=== PATIENT | female | born 1955 | race Caucasian/White ===

== ENCOUNTER 2018-08-03 14:12 | Outpatient (CLI) | payer OTHER | END 2018-08-03 14:23 | disposition home or self-care (01) | LOC: SONOGRAMA 14:12 → MAMO-SONO 14:15 → SONOGRAMA 14:23 | DX: R22.1 Localized swelling, mass and lump, neck (principal) ==

== ENCOUNTER 2019-01-20 07:21 | Outpatient (CLI) | payer OTHER | END 2019-01-20 07:33 | disposition home or self-care (01) | LOC: LAB 07:21 | DX: E03.1 Congenital hypothyroidism without goiter (principal); E78.5 Hyperlipidemia, unspecified; E11.9 Type 2 diabetes mellitus without complications; N39.0 Urinary tract infection, site not specified; I10 Essential (primary) hypertension; M25.50 Pain in unspecified joint; Z12.11 Encounter for screening for malignant neoplasm of colon ==

== ENCOUNTER 2019-01-20 12:54 | Outpatient (CLI) | payer OTHER | END 2019-01-20 13:05 | disposition home or self-care (01) | LOC: MAMO-SONO 12:54 | DX: Z13.820 Encounter for screening for osteoporosis (principal); Z12.39 Encounter for other screening for malignant neoplasm of breast; N60.31 Fibrosclerosis of right breast; N60.32 Fibrosclerosis of left breast ==

== ENCOUNTER → 2019-01-20 | Outpatient (CLI) | payer OTHER | END | disposition home or self-care (01) | LOC: NUCLEAR 11:29 | DX: M81.0 Age-related osteoporosis without current pathological fracture (principal); Z13.820 Encounter for screening for osteoporosis ==

== ENCOUNTER 2019-01-25 10:53 | Outpatient (CLI) | payer OTHER | END 2019-01-25 15:00 | disposition home or self-care (01) | LOC: LAB 10:53 | DX: E03.1 Congenital hypothyroidism without goiter (principal); E78.49 Other hyperlipidemia; E11.9 Type 2 diabetes mellitus without complications; N39.0 Urinary tract infection, site not specified; I10 Essential (primary) hypertension; M25.50 Pain in unspecified joint; Z12.11 Encounter for screening for malignant neoplasm of colon ==

== ENCOUNTER 2020-05-03 07:52 | Outpatient (CLI) | payer OTHER | END 2020-05-03 12:22 | disposition home or self-care (01) | LOC: PPH VACUNA 07:52 | DX: Z23 Encounter for immunization (principal) ==

== ENCOUNTER 2020-06-26 10:43 | Emergency (ER) | payer OTHER ==
[~2020-06-26] VITALS: Ht 152.4 cm; Wt 77.1 kg
[2020-06-26] MEDS ORDERED: WELLBUTRIN XL300 MG (10:55)
[2020-06-26] MEDS ORDERED: ZESTRIL5 MG (10:55)
[2020-06-26] MEDS ORDERED: SYNTHROID112 MCG (10:55)
[2020-06-26] MEDS ORDERED: HYDROCHLOROTH12.5 MG (10:56)
[2020-06-26] MEDS ORDERED: AMOX1TAB5 PO (13:04)
== END 2020-06-26 13:08 | disposition home or self-care (01) ==
LOC: ER 10:43
DX: L03.116 Cellulitis of left lower limb (principal); T24.10 Burn of first degree of unspecified site of lower limb, except ankle and foot; T79.8XXS Other early complications of trauma, sequela; X58.XXXS Exposure to other specified factors, sequela

== ENCOUNTER 2021-01-29 08:00 | Outpatient (CLI) | payer OTHER ==
[~2021-01-29 08:00] MED LIST: AMOX1TAB5 PO; HYDROCHLOROTH12.5 MG; SYNTHROID112 MCG; WELLBUTRIN XL300 MG; ZESTRIL5 MG
== END 2021-01-29 08:30 | disposition home or self-care (01) ==
LOC: PPH VACUNA 08:00
PROVIDERS: ATTEND Emergency Medicine Pediatric Emergency Medicine
DX: Z23 Encounter for immunization (principal)

== ENCOUNTER 2021-08-03 08:00 | Outpatient (CLI) | payer OTHER | END 2021-08-03 08:30 | disposition home or self-care (01) | LOC: PPH VACUNA 08:00 | PROVIDERS: ATTEND Emergency Medicine Pediatric Emergency Medicine | DX: Z23 Encounter for immunization (principal) ==

== ENCOUNTER 2021-12-25 11:30 | Outpatient (CLI) | payer OTHER | END 2021-12-25 13:43 | disposition home or self-care (01) | LOC: LAB 11:30 | PROVIDERS: ATTEND Internal Medicine Gastroenterology | DX: K29.00 Acute gastritis without bleeding (principal) ==

== ENCOUNTER 2022-01-15 12:40 | Outpatient (CLI) | payer OTHER | END 2022-01-15 12:50 | disposition home or self-care (01) | LOC: PPH VACUNA 12:40 | PROVIDERS: ATTEND Emergency Medicine Pediatric Emergency Medicine | DX: Z23 Encounter for immunization (principal) ==

== ENCOUNTER 2023-05-19 09:56 | Emergency (ER) | payer OTHER ==
[~2023-05-19] VITALS: Ht 152.4 cm; Wt 75.7 kg
[2023-05-19] MEDS ORDERED: NORVASC5 MG (10:00)
[2023-05-19 11:45] LABS: PH,URINE 5.5 (5.0-8.0); URINE APPEARANCE Clear; URINE BILIRRUBIN Negative (NEGATIVE); URINE BLOOD Trace; URINE COLOR Yellow; URINE GLUCOSE Negative (NEGATIVE); URINE LEUKOCYTE Negative; URINE NITRATE Negative; URINE PROTEIN Negative (NEGATIVE); URINE UROBILINOGEN 0.2 E.U./dl
[2023-05-19 11:46] LABS: HEMATOCRIT 38.7 % (36.0-45.00); HEMOGLOBIN 13.1 g/dL (12.0-15.00); MEAN CELL VOLUME 91.3 fL (80.00-100.00); MEAN CORPUSCULAR HEMOGLOBIN 30.9 pg (27.00-32.0); MEAN CORPUSCULAR HGB CONC 33.8 g/dl (32.0-36.0); PLATELET COUNT 298 K/uL (150-450); RED BLOOD COUNT 4.23 M/uL (4.00-6.00); URINE BACTERIA 59.2 uL (0.0-1933); URINE EPITHELIAL CELLS 2.4 uL (0.0-38.8)
[2023-05-19 12:28] LABS: CALCIUM 9.5 mg/dL (8.5-10.1); CREATININE SERUM 0.89 mg/dL (0.55-1.02); GFR 63.65; POTASSIUM 4.02 mEq/L (3.5-5.1)
[2023-05-19 12:48] LABS: URINE RBC 1.5 uL (0.0-20.8); URINE WBC 0.4 uL (0.0-23.2)
== END 2023-05-19 16:11 | disposition home or self-care (01) ==
LOC: ER 09:57
PROVIDERS: Emergency Medicine
DX: R10.9 Unspecified abdominal pain (principal); Z87.19 Personal history of other diseases of the digestive system; I10 Essential (primary) hypertension; E03.9 Hypothyroidism, unspecified
CPT/HCPCS: 36415; 74177; 96365; 96366; 99284; J7030; Q9965

== ENCOUNTER 2023-06-12 11:40 | Outpatient (CLI) | payer OTHER ==
[~2023-06-12 11:40] MED LIST changes: +NORVASC5 MG
== END 2023-06-12 11:43 | disposition home or self-care (01) ==
LOC: RAD 11:40
PROVIDERS: ATTEND Specialist
DX: J45.991 Cough variant asthma (principal)

== ENCOUNTER 2024-10-11 12:11 | Outpatient (CLI) | payer OTHER ==
[2024-10-11 12:46] LABS: BASO % 0.4 % (0.1-1.2); EOS % 1.5 % (0.7-7.0); HEMATOCRIT 40.5 % (34.1-44.9); HEMOGLOBIN 13.4 g/dL (11.2-15.7); LYMPH # 1.97 (1.18-3.74); LYMPH % 28.8 % (19.3-53.1); MEAN CORPUSCULAR HEMOGLOBIN 29.6 pg (25.6-32.2); MONO % 5.8 % (4.7-12.5); NEUT # 4.33 (1.56-6.13); NEUT % 63.2 % (34.0-71.1); PLATELET COUNT 316 K/uL (163-369); RED BLOOD COUNT 4.53 M/uL (3.93-5.22); RED CELL DISTRIBUTION WIDTH 12.7 % (11.6-14.4)
[2024-10-11 13:01] LABS: ERYTHROCYTE SEDIMENTATION RATE 3 mm/hr (0-30)
[2024-10-11 13:18] LABS: COVID-19 AG NEGATIVE (NEGATIVE)
[2024-10-11 13:45] LABS: ALBUMIN 4.1 gm/dL (3.4-5.0); ALT/SGPT 42 U/L (12-78); ANION GAP 8 (10.0-20.0); AST/SGOT 24 U/L (15-37); BLOOD UREA NITROGEN 16 mg/dL (7-18); BUN CREA RATIO 18 (7.0-25.0); CALCIUM 9.6 mg/dL (8.5-10.1); CARBON DIOXIDE 27 mEq/L (21-32); CHLORIDE 110 mmol/L (98-107); GFR 62.64; GLOBULINA 3.2 G/DL (2.4-3.5); GLUCOSE FASTING 96 mg/dL (65-100); OSMOLALITY SERUM 282 MOSM/KG (275-295); POTASSIUM 4.48 mEq/L (3.5-5.1); SODIUM 141 mmol/L (136-145); TOTAL PROTEIN 7.3 gm/dL (6.4-8.2)
[2024-10-11 13:48] LABS: ALKALINE PHOSPHATASE 102 U/L (50-136)
[2024-10-11 13:49] LABS: C-REACTIVE PROTEIN < 0.29 MG/DL (0.00-0.29)
[2024-10-11 13:53] LABS: INFLUENZA A AG NEGATIVE (NEGATIVE); INFLUENZA B AG NEGATIVE (NEGATIVE)
[2024-10-11 14:09] LABS: MYCOPLASMA PNEUMONIAE IGM NON REACTIVE (NO REACTIVE)
[2024-10-11] MEDS ORDERED: FARXIGA10 MG PO (15:24)
== END 2024-10-11 12:12 | disposition home or self-care (01) ==
LOC: LAB 12:11
PROVIDERS: ATTEND Specialist
DX: D64.9 Anemia, unspecified (principal); E11.65 Type 2 diabetes mellitus with hyperglycemia; J45.998 Other asthma; M35.3 Polymyalgia rheumatica; U07.1 COVID-19

== ENCOUNTER 2024-10-11 14:12 | Emergency (ER) | payer OTHER ==
[~2024-10-11] VITALS: Ht 152.4 cm; Wt 81.6 kg
[2024-10-11] MEDS ORDERED: FARXIGA10 MG PO (15:24)
[2024-10-11] MEDS ORDERED: HYDROCODONE/CHLORPHEN P-STIREX 5 ML ML PO STA (18:04)
[2024-10-11 19:15] LABS: INFLUENZA A AG NEGATIVE (NEGATIVE); INFLUENZA B AG NEGATIVE (NEGATIVE)
== END 2024-10-11 21:34 | disposition home or self-care (01) ==
LOC: ER 14:12
DX: J06.9 Acute upper respiratory infection, unspecified (principal)

== ENCOUNTER 2024-11-17 11:35 | Outpatient (CLI) | payer OTHER ==
[~2024-11-17 11:35] MED LIST changes: +FARXIGA10 MG PO
== END 2024-11-17 11:36 | disposition home or self-care (01) ==
LOC: SONOGRAMA 11:35
PROVIDERS: ATTEND Specialist
DX: N20.0 Calculus of kidney (principal)